=== PATIENT | female | born 1990 | race Caucasian/White ===

== ENCOUNTER 2023-03-14 17:45 | Emergency (ER) | payer SELFPAY ==
[2023-03-14 17:59] VITALS: BP 133/82; PULSE 101; RESP 18; TEMP 36.4; O2SAT 98; BMI 26.6
--- NOTE | 2023-03-14 18:09 | W.ED.WOUNDLC ---
HPI - Wound/Laceration General: Chief Complaint: Wound/Laceration Stated Complaint: left hand/finger laceration Time Seen by Provider: 03/14/23 18:08 History of Present Illness: 32-year-old female comes in today with laceration to the PIP joint area of the left index finger. Laceration is on the volar aspect. Patient has good range of motion of the finger. Patient reports opening up a box with a blade and excellently cut her finger. Patient does complain of some mild numbness to the distal part of the finger. Bleeding is controlled. Tetanus was last done 4 years ago. Patient denies any chronic medical problems. Associated symptoms: Denies fever(s) or vomiting Review of Systems Const: Denies: fever(s) Card: Denies: chest pain Resp: Denies: dyspnea GI: Denies: vomiting : Denies: difficulty voiding Musc: Reports: extremity pain Skin/Breast: Reports: new lesions Physical Exam Const: COMMON NORMALS: alert HENMT: COMMON NORMALS: normocephalic HEAD & SCALP: normocephalic Neck/C-Spine: COMMON NORMALS: full ROM Resp: COMMON NORMALS: normal respiratory effort Cardio: COMMON NORMALS: regular rate RATE: regular rate GI: COMMON NORMALS: non-tender Back/Pelvis: COMMON NORMALS: thoracic and lumbar spine normal to inspection Extremity: LEFT UPPER EXTREMITY: Yes hand & digits (1 cm laceration volar left index finger PIP joint) Neuro: SENSORIUM/ORIENTATION: Yes alert Skin: COMMON NORMALS: turgor normal GENERAL SKIN EXAM: turgor normal TRAUMA: laceration (Left index finger) Procedures Laceration Laceration 1: Site: hand Side (If applicable): left Size (cm): 1 Description: linear Depth: simple, single layer Pre-repair: wound explored and irrigated extensively Skin layer closed with: other (Skin adhesive) Course Vital Signs: Vital signs: Vital Signs Temperature 97.6 F 03/14/23 17:59 Pulse Rate 101 H 03/14/23 17:59 Respiratory Rate 18 03/14/23 17:59 Blood Pressure 133/82 03/14/23 17:59 Pulse Oximetry 98 03/14/23 17:59 Oxygen Delivery Me thod Room Air 03/14/23 17:59 MDM - Wound/Laceration Medical Decision Making 32-year-old female comes in with a superficial laceration to the left index finger. Patient has good range of motion. Patient does report some numbness in the distal part of the finger. Cap refill is intact. Differential diagnosis includes but not limited to fracture, laceration, neurovascular injury. No signs of serious injury or illnesses noted. Wound was repaired with skin adhesive, then placed in a splint for further protection. Patient tolerated well. Reviewed exam with patient with recommendations for further treatment and follow-up. Patient reported understanding and agreed to plan. No radiology studies performed this visit Discharge Plan Discharge Patient Disposition: Home Clinical Impression: Laceration of finger of left hand Qualifiers: Encounter type: initial encounter Finger: index finger Damage to nail status: without damage Foreign body presence: without foreign body Qualified Code(s): S61.211A - Laceration without foreign body of left index finger without damage to nail, initial encounter Condition: Stable Discharge Orders: Discharge ED (Routine); Ordered 03/14/23 Ordered By: Kirt Ontiveros Discharge Diet: Usual diet Discharge Activity: Increase activity as tolerated Patient Instructions: Finger Laceration (ED) Activity Restrictions/Additional Instructions: Keep the wound clean and dry as much as possible. Is very important keep the wound as dry as possible for the first 48 hours. Keep wound dressed to protect it. Splint the finger for further protection of the wound. Follow-up with primary care as needed. Return to ED for new concerns. Allow the skin adhesive and clear site dressing to come off on their own. Redress with clear site as needed. Coding Level of Care Code ED Solutions Architect Consultant for Mary Rosas
== END 2023-03-14 18:56 | disposition home or self-care (01) ==
PROVIDERS: Emergency Provider Nurse Practitioner Family
DX: S61.211A Laceration without foreign body of left index finger without damage to nail, initial encounter (principal); W26.0XXA Contact with knife, initial encounter
CPT/HCPCS: 12001; 99282